=== PATIENT | female | born 1955 | race Caucasian/White ===

== ENCOUNTER 2016-04-28 13:00 | Outpatient (RCR) | payer MEDICARE, BC | END 2016-05-29 15:46 | disposition home or self-care (01) | LOC: PT 13:00 | PROVIDERS: ATTEND Orthopaedic Surgery | DX: S82.852D Displaced trimalleolar fracture of left lower leg, subsequent encounter for closed fracture with routine healing (principal); W17.2XXD Fall into hole, subsequent encounter; Z98.890 Other specified postprocedural states | CPT/HCPCS: 97001; 97016; 97110; 97112; 97140; G8978; G8979 ==